=== PATIENT | female | born 2000 | race Caucasian/White ===

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

== ENCOUNTER 2022-01-24 00:01 | Emergency (ER) | payer OTHER ==
[2022-01-24] MEDS ORDERED: MECLIZINE HCL25 MG PO (03:04)
== END 2022-01-24 03:10 | disposition home or self-care (01) ==
LOC: ER1 00:01
DX: H81.12 Benign paroxysmal vertigo, left ear (principal); Z20.822 Contact with and (suspected) exposure to COVID-19
CPT/HCPCS: 99284; U0002